=== PATIENT | male | born 2000 | race Caucasian/White ===

== ENCOUNTER 2025-07-30 14:14 | Emergency (ER) | payer SELFPAY ==
[~2025-07-30] VITALS: Ht 180.3 cm; Wt 69.0 kg
[2025-07-30] MEDS: SODIUM CHLORIDE 0.9% 1,000 ML IV ONE ×2 (14:56→18:32)
[2025-07-30] MEDS: TETANUS, DIPHTHERIA, PERTUSSIS VAC/PF 0.5ML (>10YR OLD) IM ONE (14:57)
[2025-07-30 15:09] LABS: BASOPHILS % 0.3 % (0.0-2.0); EOSINOPHILS % 0.4 % (0.0-5.0); HEMATOCRIT. 42.1 % (42.0-52.0); HEMOGLOBIN. 14.5 g/dL (14.0-18.0); LYMPHOCYTES % 12.9 % (20.0-50.0); MEAN PLATELET VOLUME 7.6 fl (7.4-10.4); MONOCYTES % 7.2 % (2.0-8.0); NEUTROPHILS % 79.2 % (40.0-76.0); PLATELET 293 x1000/uL (130-400); RED BLOOD CELL COUNT 4.62 mill/uL (4.7-6.1); RED CELL DISTRIBUTION WIDTH 13.3 % (11.6-14.6)
[2025-07-30] MEDS: CEFAZOLIN 1000MG PREMIX 50 ML IV ONE (15:09)
[2025-07-30 15:20] LABS: INR 1.0
[2025-07-30 15:22] LABS: CREATININE 0.8 mg/dL (0.6-1.3); UREA NITROGEN BLOOD 6 mg/dL (9-23)
[2025-07-30 15:23] LABS: ETHANOL BLOOD 111 mg/dL (<10)
[2025-07-30 15:24] LABS: ASPARTATE AMINOTRANSFERASE 18 IU/L (<34); BILIRUBIN DIRECT 0.1 mg/dL (<=3.0)
[2025-07-30 15:25] LABS: BILIRUBIN TOTAL 0.4 mg/dL (0.1-1.0); PROTEIN TOTAL 7.5 g/dL (6.0-8.3)
[2025-07-30 17:45] VITALS: O2SAT 99
[2025-07-30] MEDS: LIDOCAINE HCL 1% 20ML VIAL INFIL ONE (17:48)
[2025-07-30] MEDS: KETAMINE HCL 50 MG/ML 10ML IV ONE (17:48)
[2025-07-30] MEDS ORDERED: IBUP-1455 MT (18:41)
[2025-07-30] MEDS ORDERED: CEPH250C2 MT (18:41)
[2025-07-30 19:05] VITALS: BP 133/86; PULSE 130; RESP 16; TEMP 37; O2SAT 100
[2025-07-30] MEDS ORDERED: IOHEXOL-300 100 ML BOTTLE ONE (22:10)
== END 2025-07-30 19:09 | disposition home or self-care (01) ==
LOC: ER 14:14
DX: S52.611A Displaced fracture of right ulna styloid process, initial encounter for closed fracture (principal); S21.111A Laceration without foreign body of right front wall of thorax without penetration into thoracic cavity, initial encounter; R51.9 Headache, unspecified; Z79.899 Other long term (current) drug therapy; Z98.890 Other specified postprocedural states; W13.4XXA Fall from, out of or through window, initial encounter; Y93.89 Activity, other specified; Y92.89 Other specified places as the place of occurrence of the external cause; Y99.8 Other external cause status
CPT/HCPCS: 80076; 80048; 80320; 83735; 85025; 85610; 85730; 86850; 86900; 86901; 36415; 71045; 73100; 73110; 73130; 70450; 71260; 72125; 74177; 90715; 12002; 25605; 90471; 96361; 96365; 99152; 99291; Q9967; J0690; J3490; J2003; J7030; Z7610 ×3; A6449; G0480

== ENCOUNTER 2025-08-08 16:22 | Emergency (ER) | payer SELFPAY ==
[~2025-08-08] VITALS: Ht 175.3 cm; Wt 60.0 kg
[~2025-08-08 16:22] MED LIST: CEPH250C2 MT; IBUP-1455 MT
[2025-08-08 16:28] VITALS: O2SAT 99
[2025-08-08 18:56] VITALS: BP 128/80; PULSE 97; RESP 18; TEMP 36.7; O2SAT 99
== END 2025-08-08 18:56 | disposition home or self-care (01) ==
LOC: ER 16:22
DX: S61.212D Laceration without foreign body of right middle finger without damage to nail, subsequent encounter (principal); S21.111D Laceration without foreign body of right front wall of thorax without penetration into thoracic cavity, subsequent encounter; F12.90 Cannabis use, unspecified, uncomplicated; X58.XXXD Exposure to other specified factors, subsequent encounter
CPT/HCPCS: 99282; Z7610